=== PATIENT | male | born 1980 | race Caucasian/White ===

== ENCOUNTER 2025-01-04 17:34 | Emergency (ER) | payer SELFPAY ==
[2025-01-04] VITALS (11 sets, daily range): BP systolic 137–156; BP diastolic 91–106; PULSE 67–84; RESP 10–32; TEMP 36.5; O2SAT 94–99
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
[2025-01-04 18:13] LABS: Abs Immature Grans 0.03 10^3/uL (0.0-0.06); Absolute Basophil Count 0.14 10^3/uL (0.0-0.2); Absolute Eosinophil Count 0.33 10^3/uL (0.0-0.7); Absolute Lymphocyte Count 2.74 10^3/uL (1.2-3.4); Absolute Monocyte Count 0.86 10^3/uL (0.1-0.8); Absolute Neutrophil Count 3.86 10^3/uL (1.2-6.7); Basophils % 1.8 %; Eosinophils % 4.1 %; HCT 44.4 % (40.0-50.0); HGB 14.8 g/dL (13.5-17.5); Immature Grans % 0.4 %; Lymphocytes % 34.4 %; MCH 32.6 pg (27.0-33.0); MCHC 33.3 % (32.0-36.0); MCV 98 fL (80-95); MPV 10.5 fL (8.0-11.0); Monocytes % 10.8 %; Neutrophils % 48.5 %; Platelet Count 213 10^3/uL (130-400); RBC 4.54 10^6/uL (4.36-5.78); RDW 14.9 % (11.8-14.1); RDW-SD 54.5 fL; WBC 7.96 10^3/uL (4.4-10.8)
[2025-01-04 18:31] LABS: ALT 95 U/L (16-63); AST 147 U/L (15-37); Albumin 3.8 g/dL (3.4-5.0); Alkaline Phosphatase 109 U/L (46-116); BUN 10 mg/dL (7-18); Bilirubin, Total 1.3 mg/dL (0.2-1.0); CREATININE 0.9 mg/dL (0.70-1.30); Chloride 106 mmol/L (98-107); Estimated GFR 108.68 (mL/min/1.73m2); Glucose 107 mg/dL (74-106); Magnesium 1.9 mg/dL; Potassium 3.6 mmol/L (3.5-5.1); Sodium 145 mmol/L (136-145); Total Protein 7.3 g/dL (6.4-8.2)
[2025-01-04 18:33] LABS: ETHANOL BLOOD 309.3 mg/dL (<10)
[2025-01-04] MEDS: Omnipaque 350 MG/ML 100 ML BTL IJ (18:35)
[2025-01-04] MEDS: Normal Saline - Diluent 50 ML VIAL IJ (18:35)
--- NOTE | 2025-01-04 18:49 | NUR.NOTE ---
pt continues to ripe off MD clementina aware. pt educated on the need of keeping it on. pt states he will try. Nursing Note:
[2025-01-04] MEDS: Lidocaine 1% Multi-Dose W/EPI 1/100,000 50 ML VIAL (20:00)
[2025-01-04] MEDS: Tetanus & Diphtheria Tox,ADULT 0.5 ML VIAL IM (20:08)
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
[2025-01-04] MEDS: Ketorolac 30 MG/ML VIAL IVP (20:58)
[2025-01-04] MEDS: diazePAM 5 MG TAB PO (21:13)
[2025-01-04 21:43] LABS: Bilirubin Negative (Negative); Blood Trace-lysed (Negative); Clarity Clear (Clear); Glucose Negative (Negative); Ketones Negative (Negative); Leukocyte Esterase Negative (Negative); Nitrite Negative (Negative); Specific Gravity 1.015 (1.005-1.025); Urobilinogen 0.2 mg/dL (Up to 0.2); pH 6.5 (5-8)
[2025-01-04 21:50] LABS: Bacteria Negative HPF (Negative); C & S Indicated? No; Crystals Negative HPF (Negative); Epithelial Cells Negative HPF (Negative); Mucus Negative (Negative); RBC 0-2 HPF (0-2); WBC Negative HPF (0-5)
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
[2025-01-04 22:01] LABS: *AMPHETAMINES SCREEN URINE Negative (Negative); *BARBITURATES SCREEN URINE Negative (Negative); *BENZODIAZEPINES SCREEN URINE Negative (Negative); Cannabinoids THC Positive (Negative); Cocaine Screen,Urine Negative (Negative); METHADONE URINE SCREEN Negative (Negative); OPIATES URINE SCREEN Negative (Negative)
[2025-01-04 22:06] LABS: Tricyclic Antidepressants Negative (Negative)
[2025-01-05 01:16] VITALS: PULSE 68; O2SAT 94
[2025-01-05] MEDS: Ketorolac 15 MG/ML VIAL IVP (04:03)
[2025-01-05] MEDS: ACETAMINOPHEN 1,000 MG/100 ML BAG 400 MG IVPB (04:04)
[2025-01-05] MEDS: Cyclobenzaprine 10 MG TAB PO (04:06)
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
[2025-01-05 07:15] VITALS: BP 125/83; PULSE 73; RESP 16; O2SAT 95
[2025-01-05] MEDS: Acetaminophen 500 MG TAB (11:00)
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
[2025-01-05] MEDS: MORPHine IR 15 MG TAB, 4 TABS/BTL PO (11:48)
== END 2025-01-05 12:02 | disposition home or self-care (01) ==
PROVIDERS: Emergency Medicine; Emergency Provider Student in an Organized Health Care Education/Training Program; PCP Neuromusculoskeletal Medicine & OMM
DX: S12.400A Unspecified displaced fracture of fifth cervical vertebra, initial encounter for closed fracture (principal); S51.012A Laceration without foreign body of left elbow, initial encounter; F10.929 Alcohol use, unspecified with intoxication, unspecified; V48.5XXA Car driver injured in noncollision transport accident in traffic accident, initial encounter; Z23 Encounter for immunization
CPT/HCPCS: 00123; 12001; 74177; 80053; 80307; 90471; 90714; 96365; 96375; 99285; 70450; 71260; 72125; 73080; 80320; 81003; 81015; 83735; 85025; 99284; J0131; J1885; J2004; J3490

== ENCOUNTER 2025-01-22 10:33 | Outpatient (CLI) | payer BC, SELFPAY ==
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
== END 2025-01-22 10:53 ==
PROVIDERS: PCP Neuromusculoskeletal Medicine & OMM; Visit Provider Family Medicine
DX: S12.400D Unspecified displaced fracture of fifth cervical vertebra, subsequent encounter for fracture with routine healing (principal); X58.XXXD Exposure to other specified factors, subsequent encounter
CPT/HCPCS: 72050